=== PATIENT | female | born 1985 | race Caucasian/White ===

== ENCOUNTER → 2020-01-01 | Day surgery (SDC) | payer OTHER ==
[~2020-01-01] MED LIST: FENTANYL CITRATE/PF 100MCG/2 ML INJ ONE; HYOSCYAMINE 0.125 MG TAB ONE; KETAMINE HCL INJ 50 MG/ML 10 ML VIAL ONE; LIDOCAINE HCL 2% LOCAL INJ 5 ML SDV VIAL INJ ONE; MIDAZOLAM HCL 2 MG/2 ML VIAL ONE; NP THYROID60 MG PO; PROPOFOL IV EMULSION 10 MG/ML 20 ML VIAL ONE
[2020-01-01 13:25] VITALS: BP 115/63
[2020-01-01 14:27] LABS: WBC,FECAL (FECAL LACTOFERRIN) NEGATIVE (NEGATIVE)
[2020-01-01 14:30] LABS: C DIFFICILE TOXIN A&B AMP PROB NEGATIVE (NEGATIVE)
--- NOTE | 2020-01-01 19:10 | Operative Report ---
DATE OF PROCEDURE: 01/01/2020 SURGEON: Lemuel Frances MD PROCEDURE: Colonoscopy with biopsies. INDICATIONS FOR COLONOSCOPY: Personal history of colon polyps, history of loose stools. MEDICATIONS: The patient was done under MAC. Please see anesthesiologist's note. PROCEDURE IN DETAIL: With the patient in left lateral decubitus position, a flexible fiberoptic Olympus colonoscope was inserted into the rectum with ease and advanced all the way to the cecum. Mucosa overlying the cecum appeared to be within normal limits. The ileocecal valve was intubated and the scope was advanced into the terminal ileum. Biopsies were obtained. The scope was then withdrawn back into the colon. It was then withdrawn slowly and mucosa overlying the cecum, ascending colon, and transverse colon appeared to be within normal limits. Mild patchy inflammatory changes were noted in the left colon and the rectum and multiple random biopsies were obtained. The scope was then retroflexed into the distal rectum. The area around the dentate line appeared to be within normal limits. The scope was then straightened out. It was subsequently withdrawn. After securing an adequate stool specimen that was sent for the appropriate stool studies. The patient tolerated the procedure well. IMPRESSION: 1. Mild patchy left-sided colitis. 2. Proctitis, mild. PLAN: Follow up histology. Follow up stool studies. Initiate VSL #3 one p.o. b.i.d. and Bentyl 10 mg one p.o. t.i.d. Lemuel Frances MD [facility] [place] /[id number] cc: Dr. High
== END | disposition home or self-care (01) ==
LOC: OR 06:54
PROVIDERS: ATTEND Internal Medicine Gastroenterology
DX: K51.50 Left sided colitis without complications (principal); Z86.010 Personal history of colon polyps; K62.89 Other specified diseases of anus and rectum; E03.9 Hypothyroidism, unspecified; Z01.812 Encounter for preprocedural laboratory examination; Z11.59 Encounter for screening for other viral diseases
CPT/HCPCS: 36415; 45380; 83630; 83993; 84702; 87045; 87177; 87328; 87493; 87635; J2001; J2250; J2704; J3010; 45378